=== PATIENT | male | born 1980 | race Caucasian/White ===

== ENCOUNTER 2017-08-18 19:38 | Emergency (ER) | payer SELFPAY ==
[~2017-08-18] VITALS: Ht 162.6 cm; Wt 56.7 kg
[~2017-08-18 19:38] MED LIST: CEPH500 PO; CODACE30 PO; HYDACE5 PO; IBUP600 PO; KETO10 PO; MEDICAL MARIJUANA INH; NAPR500 PO; Norco 5-325 Ta1 EACH PO; OXYACE5T PO; PENVK500 PO; PROM25 PO; RXHYDACE PO; RXPROACE PO; RXTRAM50 PO; SULTRIDS PO; TRAM50 PO; Veetids 500500 MG PO
[2017-08-18] MEDS ORDERED: PENVK500 PO (21:19)
== END 2017-08-18 21:22 | disposition home or self-care (01) ==
LOC: ER 19:38
DX: K04.7 Periapical abscess without sinus (principal); K03.81 Cracked tooth; F17.200 Nicotine dependence, unspecified, uncomplicated; Z91.018 Allergy to other foods
CPT/HCPCS: 99283

== ENCOUNTER 2017-09-23 19:00 | Emergency (ER) | payer SELFPAY ==
[~2017-09-23] VITALS: Ht 162.6 cm; Wt 56.7 kg
[2017-09-23] MEDS ORDERED: Zovirax400 MG PO (20:31)
== END 2017-09-23 20:43 | disposition home or self-care (01) ==
LOC: ER 19:00
DX: A60.00 Herpesviral infection of urogenital system, unspecified (principal); F17.210 Nicotine dependence, cigarettes, uncomplicated; Z91.018 Allergy to other foods
CPT/HCPCS: 99282

== ENCOUNTER 2018-05-06 08:17 | Emergency (ER) | payer OTHER ==
[~2018-05-06] VITALS: Ht 162.6 cm; Wt 56.7 kg
[~2018-05-06 08:17] MED LIST changes: +Zovirax400 MG PO
[2018-05-06] MEDS ORDERED: Permethrin60 GM TOP (09:11)
== END 2018-05-06 09:19 | disposition home or self-care (01) ==
LOC: ER 08:17
DX: R21 Rash and other nonspecific skin eruption (principal); F17.200 Nicotine dependence, unspecified, uncomplicated; Z91.018 Allergy to other foods
CPT/HCPCS: 99282

== ENCOUNTER 2018-07-29 12:12 | Emergency (ER) | payer OTHER ==
[~2018-07-29] VITALS: Ht 162.6 cm; Wt 59.0 kg
[~2018-07-29 12:12] MED LIST changes: +Permethrin60 GM TOP
[2018-07-29] MEDS ORDERED: PERIDEX15 ML MM (13:45)
[2018-07-29] MEDS ORDERED: Amoxicillin500 MG PO (13:45)
== END 2018-07-29 14:45 | disposition home or self-care (01) ==
LOC: ER 12:12
DX: K04.7 Periapical abscess without sinus (principal); Z91.018 Allergy to other foods; Z79.899 Other long term (current) drug therapy; F17.210 Nicotine dependence, cigarettes, uncomplicated
CPT/HCPCS: 94640

== ENCOUNTER 2018-08-28 13:02 | Emergency (ER) | payer OTHER ==
[~2018-08-28] VITALS: Ht 162.6 cm; Wt 61.2 kg
[~2018-08-28 13:02] MED LIST changes: +Amoxicillin500 MG PO; +PERIDEX15 ML MM
[2018-08-28] MEDS ORDERED: PERIDEX15 ML MM (14:41)
[2018-08-28] MEDS ORDERED: Amoxicillin500 M1 PO (14:41)
== END 2018-08-28 15:50 | disposition home or self-care (01) ==
LOC: ER 13:02
DX: K04.7 Periapical abscess without sinus (principal); Z91.018 Allergy to other foods; F17.210 Nicotine dependence, cigarettes, uncomplicated
CPT/HCPCS: 41800; 99283-25

== ENCOUNTER 2019-03-13 12:11 | Emergency (ER) | payer OTHER ==
[~2019-03-13] VITALS: Ht 165.1 cm; Wt 63.5 kg
[~2019-03-13 12:11] MED LIST changes: +Amoxicillin500 M1 PO
== END 2019-03-13 14:22 | disposition home or self-care (01) ==
LOC: ER 12:11
DX: F22 Delusional disorders (principal); F17.200 Nicotine dependence, unspecified, uncomplicated
CPT/HCPCS: 99284

== ENCOUNTER 2020-05-24 14:14 | Emergency (ER) | payer OTHER ==
[~2020-05-24] VITALS: Ht 162.6 cm; Wt 56.7 kg
== END 2020-05-24 14:30 ==
LOC: ER 14:14
DX: Z02.89 Encounter for other administrative examinations (principal); F17.210 Nicotine dependence, cigarettes, uncomplicated; Z91.018 Allergy to other foods
CPT/HCPCS: 99283

== ENCOUNTER 2022-02-26 09:22 | Emergency (ER) | payer OTHER ==
[~2022-02-26] VITALS: Ht 162.6 cm; Wt 610.1 kg
[2022-02-26] MEDS ORDERED: Permethrin60 GM TOP (10:19)
== END 2022-02-26 10:24 | disposition home or self-care (01) ==
LOC: ER 09:22
DX: B86 Scabies (principal); F17.210 Nicotine dependence, cigarettes, uncomplicated; Z91.018 Allergy to other foods; Z59.00 Homelessness unspecified
CPT/HCPCS: 99282

== ENCOUNTER 2022-03-23 12:26 | Emergency (ER) | payer OTHER ==
[~2022-03-23] VITALS: Ht 170.2 cm; Wt 61.2 kg
[2022-03-23] MEDS ORDERED: PERM5TC TOP (12:41)
[2022-03-23] MEDS ORDERED: HYDHCL25 PO (12:41)
== END 2022-03-23 12:46 | disposition home or self-care (01) ==
LOC: ER 12:26
DX: R21 Rash and other nonspecific skin eruption (principal); F17.200 Nicotine dependence, unspecified, uncomplicated
CPT/HCPCS: 99282

== ENCOUNTER 2022-04-14 19:52 | Emergency (ER) | payer OTHER ==
[~2022-04-14] VITALS: Ht 162.6 cm; Wt 56.7 kg
[~2022-04-14 19:52] MED LIST changes: +HYDHCL25 PO; +PERM5TC TOP
== END 2022-04-14 23:06 | disposition left against medical advice (07) ==
LOC: ER 19:52
DX: S01.85XA Open bite of other part of head, initial encounter (principal); W54.0XXA Bitten by dog, initial encounter; T63.301A Toxic effect of unspecified spider venom, accidental (unintentional), initial encounter; M54.9 Dorsalgia, unspecified; Z53.21 Procedure and treatment not carried out due to patient leaving prior to being seen by health care provider
CPT/HCPCS: 99281